=== PATIENT | male | born 1990 | race Asian ===

== ENCOUNTER 2019-06-21 19:51 | Emergency (ER) | payer OTHER ==
[2019-06-21 20:02] VITALS: BP 155/93
--- NOTE | 2019-06-21 20:08 | UC ---
Complaint Male HPI - HPI Summary HPI Summary: Pleasant 28 yo gentleman c/o progressively worse waxing and waning L testicle pain over the past week. Today finally was so painful that he came to get checked. Notes one day had R testicle pain, but resolved completely. No dysuria, hematuria, frequency, urgency. No penile d/c, sores, current lymphadenopathy, rash. No fever / chills. - History of Current Complaint Chief Complaint: UCGU Stated Complaint: PERSONAL ISSUE Time Seen by Provider: 06/21/19 20:07 Hx Obtained From: Patient Pain Intensity: 6 - Allergies/Home Medications Allergies/Adverse Reactions: Allergies Allergy/AdvReac Type Severity Reaction Status Date / Time No Known Allergies Allergy Verified 06/21/19 20:02 Home Medications: Home Medications RX: Ibuprofen 800 mg PO DAILY WITH MEAL 06/21/19 [History Confirmed 06/21/19] PMH/Surg Hx/FS Hx/Imm Hx Previously Healthy: Yes - Surgical History Surgical History: None - Family History Known Family History: Positive: Unknown - Social History Alcohol Use: Rare Substance Use Type: None Smoking Status (MU): Never Smoked Tobacco Review of Systems All Other Systems Reviewed And Are Negative: Yes Constitutional: Positive: Negative Skin: Positive: Negative Eyes: Positive: Negative ENT: Positive: Negative Respiratory: Positive: Negative Cardiovascular: Positive: Negative Gastrointestinal: Positive: Negative Genitourinary: Positive: Other - see hpi Motor: Positive: Negative Neurovascular: Positive: Negative Musculoskeletal: Positive: Negative Neurological: Positive: Negative Psychological: Positive: Negative Is Patient Immunocompromised?: No Physical Exam Triage Information Reviewed: Yes Appearance: Well-Appearing, Well-Nourished Vital Signs: Initial Vital Signs Temp 97.7 F 06/21/19 19:58 Pulse 91 06/21/19 19:58 Resp 18 06/21/19 19:58 BP 155/93 06/21/19 19:58 Pulse Ox 99 06/21/19 19:58 Vital Signs Reviewed: Yes Eye Exam: Normal - grossly nad ENT Exam: Normal - grossly nad Neck exam: Normal - grossly nad Respiratory Exam: Normal Cardiovascular Exam: Normal Abdominal Exam: Normal Abdomen Description: Positive: Nontender Male Genital Exam: Positive: Normal Genitalia, Epididymal Tenderness, Scrotum Tenderness (L), Testicular Tenderness (L), Other - no redness, mild swelling. Negative: Scrotum Tenderness (R), Testicular Tenderness (R), Urethral Discharge Musculoskeletal Exam: Normal - gait steady Neurological Exam: Normal - grossly nonfocal Psychological Exam: Normal - conversing easily, nad Complaint Male Course/Dx - Course Course Of Treatment: Urine dip reviewed with pt (> sg, o/w nad). Pain is testicle is significant. U/s not available in [facility]. Will go to ED for further eval / tx. He will drive to ED. - Differential Dx/Diagnosis Provider Diagnosis: Testicular pain, left Discharge ED - Sign-Out/Discharge Documenting (check all that apply): Patient Departure All imaging exams completed and their final reports reviewed: No Studies - Discharge Plan Condition: Stable Disposition: HOME Patient Education Materials: Testicle Pain (ED) Referrals: No Primary Care Phys,NOPCP [Primary Care Provider] - Additional Instructions: Please go to the Emergency Department. Stop and call 911 if problems en route. - Billing Disposition and Condition Condition: STABLE Disposition: Home
== END 2019-06-21 20:55 | disposition home or self-care (01) ==
LOC: UCEAST 19:51
DX: N50.812 Left testicular pain (principal)
CPT/HCPCS: 81003; 99202; G0463

== ENCOUNTER 2019-06-21 21:11 | Emergency (ER) | payer OTHER ==
[2019-06-21] MEDS ORDERED: Lidocaine 1% MPF ** 5 ML VIAL IM ONE (23:48)
[2019-06-21] MEDS ORDERED: cefTRIAXone VIAL(*) 250 MG VIAL IM ONE (23:48)
[2019-06-21] MEDS ORDERED: DOXYcycline CAP(*) 100 MG PO ONE (23:49)
--- NOTE | 2019-06-21 23:53 | ED ---
GI/ HPI - HPI Summary HPI Summary: 28-year-old male presents with left testicular pain for the past week. He denies any mass or lesions. No dysuria urgency or frequency. No penile discharge. No flank pain. No fevers. never had this before. No injury. Pain does not move anywhere. Does not radiate into the abdomen. - History of Current Complaint Chief Complaint: EDUrogenitalProblems Time Seen by Provider: 06/21/19 23:38 Stated Complaint: GENITAL PAIN PER PT Pain Intensity: 5 - Allergy/Home Medications Allergies/Adverse Reactions: Allergies Allergy/AdvReac Type Severity Reaction Status Date / Time No Known Allergies Allergy Verified 06/21/19 21:17 PMH/Surg Hx/FS Hx/Imm Hx Endocrine/Hematology History: Denies: Hx Diabetes, Hx Thyroid Disease Cardiovascular History: Denies: Hx Hypertension Respiratory History: Denies: Hx Asthma, Hx Chronic Obstructive Pulmonary Disease (COPD) GI History: Denies: Hx Ulcer Infectious Disease History: No Infectious Disease History: Denies: Hx Hepatitis, Hx Human Immunodeficiency Virus (HIV), Traveled Outside the in Last 30 Days - Family History Known Family History: Positive: Unknown - Social History Alcohol Use: Rare Substance Use Type: Reports: None Smoking Status (MU): Never Smoked Tobacco Review of Systems Negative: Fever Negative: Chest Pain Negative: Shortness Of Breath Positive: other - testicular pain All Other Systems Reviewed And Are Negative: Yes Physical Exam Triage Information Reviewed: Yes Vital Signs On Initial Exam: Initial Vitals Temp Pulse Resp BP Pulse Ox 97.1 F 90 16 153/98 98 06/21/19 21:12 06/21/19 21:12 06/21/19 21:12 06/21/19 21:12 06/21/19 21:12 Vital Signs Reviewed: Yes Appearance: Positive: Well-Appearing Skin: Positive: Warm, Dry Head/Face: Positive: Normal Head/Face Inspection Eyes: Positive: Normal, Conjunctiva Clear ENT: Positive: Pharynx normal Respiratory/Lung Sounds: Positive: Clear to Auscultation, Breath Sounds Present Cardiovascular: Positive: Normal, RRR Abdomen Description: Positive: Nontender, Soft Bowel Sounds: Positive: Present Male Genital Exam: Positive: Epididymal Tenderness - left, Scrotum Tenderness (L ). Negative: Testicular Tenderness (L) Musculoskeletal: Positive: Normal Neurological: Positive: Normal Psychiatric: Positive: Normal Diagnostics - Vital Signs Vital Signs Temp Pulse Resp BP Pulse Ox 06/21/19 23:20 98.2 F 91 16 137/88 96 06/21/19 21:12 97.1 F 90 16 153/98 98 - Laboratory Lab Statement: Any lab studies that have been ordered have been reviewed, and results considered in the medical decision making process. - Ultrasound No standard instances Ultrasound Interpretation Completed By: Radiologist Summary of Ultrasound Findings: IMPRESSION: 1. Abnormal appearing right epididymis with increased flow consistent with epididymitis. 2. Both testicles are of normal size and appearance. Normal blood flow. GIGU Course/Dx - Course Course Of Treatment: 28-year-old male presents with left testicular pain for the past week. He denies any mass or lesions. No dysuria urgency or frequency. No penile discharge. No flank pain. No fevers. never had this before. No injury. Pain does not move anywhere. Does not radiate into the abdomen. On exam tenderness left epididymal area. Ultrasound shows epididymitis. Gave dosed of Rocephin and doxcycline. Told follow up with urology if no improvement. Patient understands agrees to plan. - Diagnoses Differential Diagnoses - Male: Epididymitis, Testicular Torsion, Urinary Tract Infection Provider Diagnoses: Acute epididymitis Discharge ED - Sign-Out/Discharge Documenting (check all that apply): Patient Departure Patient Received Moderate/Deep Sedation with Procedure: No - Discharge Plan Condition: Good Disposition: HOME Prescriptions: DOXYcycline CAP(*) [DOXYcycline 100MG CAP(*)] 100 mg PO BID #19 cap Patient Education Materials: Epididymitis (ED) Referrals: Valentín Cantu MD [Medical Doctor] - Additional Instructions: take doxycyline twice a day for 10 days Take ibuprofen every 6 hours as needed for pain elevate scrotum for pain relief follow up with urology if no improvement Return to ED if develop any new or worsening symptoms - Billing Disposition and Condition Condition: GOOD Disposition: Home
[2019-06-22 00:02] VITALS: BP 128/90
== END 2019-06-22 00:01 | disposition home or self-care (01) ==
LOC: ED 21:11
DX: N45.1 Epididymitis (principal)
CPT/HCPCS: 76870; 96372; 99282; A9270-GY; J0696

== ENCOUNTER 2019-09-19 15:51 | Emergency (ER) | payer OTHER ==
[2019-09-19 16:02] VITALS: BP 130/91
--- NOTE | 2019-09-19 16:05 | UC ---
Skin Complaint HPI - HPI Summary HPI Summary: Patient presents to urgent care for evaluation of the wound on the right side of his neck. Patient states he is always had a small multiple. Patient states over the last 2-3 days, bigger. Patient states yesterday he was using a little bit of white drainage. Mild erythema. No pain. No fevers no chills. Patient denies any trauma. No difficulty swallowing. Patient has not taken any medications to try to treat it. Patient never seen anybody for before. Patient without any fevers or chills. Patient states is not immunocompromised. Patient's indications as entered in the EMR reviewed this visit. - History of Current Complaint Chief Complaint: UCGeneralIllness Time Seen by Provider: 09/19/19 16:04 Stated Complaint: SORE SPOT ON NECK Hx Obtained From: Patient Current Severity: None Pain Intensity: 0 Pain Scale Used: 0-10 Numeric - Allergy/Home Medications Allergies/Adverse Reactions: Allergies Allergy/AdvReac Type Severity Reaction Status Date / Time No Known Allergies Allergy Verified 09/19/19 15:57 PMH/Surg Hx/FS Hx/Imm Hx Previously Healthy: Yes - Surgical History Surgical History: None - Family History Known Family History: Positive: Unknown - Social History Occupation: Employed Full-time Lives: With Family Alcohol Use: Rare Substance Use Type: None Smoking Status (MU): Never Smoked Tobacco Review of Systems All Other Systems Reviewed And Are Negative: Yes Constitutional: Positive: Negative Skin: Positive: Other - right side neck lesion Is Patient Immunocompromised?: No Physical Exam - Summary Physical Exam Summary: Vital Signs Reviewed: Yes A+Ox3, no distress Eyes: Conjunctiva Clear ENT: Hearing grossly normal Neck: Positive: Supple Respiratory: Positive: No respiratory distress, No accessory muscle use Cardiovascular: skin color reflect adequate perfusion Musculoskeletal Exam: SHIELDS x 4 without difficulty Neurological: Positive: Alert, ambulatory without difficulty Psychological: Positive: Normal Response To proivder Skin: Positive: right side neck, mid SCM pt with mobile leonardo sized lesion, non tender, non fluctuance, mild erythema, not indurated with scant white, keratenous substance,no odor culture taken Triage Information Reviewed: Yes Vital Signs: Initial Vital Signs Temp 97.9 F 09/19/19 15:58 Pulse 98 09/19/19 15:58 Resp 18 09/19/19 15:58 BP 130/91 09/19/19 15:58 Pulse Ox 99 09/19/19 15:58 Course/Dx - Course Course Of Treatment: Pt presents to for eval of lesion on right side of neck. Pt states has been present for a few years, became larger this week and some drainage yesterday. no fever, chills. not immunocompromised, non painful VSS Pt with apparent epidermal cyst mild erythema, culture taken of scant drainage will start abx warm soaks motrin/apap strict return precautions surgery referral Pt comfortable and in agreement with plan - Diagnoses Provider Diagnosis: Epidermal cyst of neck Discharge ED - Sign-Out/Discharge Documenting (check all that apply): Patient Departure All imaging exams completed and their final reports reviewed: No Studies - Discharge Plan Condition: Stable Disposition: HOME Prescriptions: Sulfamethox/Trimethoprim DS* [Bactrim DS 800/160 TAB*] 1 tab PO BID #20 tab Patient Education Materials: Epidermal Inclusion Cysts (ED) Referrals: [facility] [place] [facility] REFERRAL [Outside] Tim Paulson MD [Medical Doctor] - No Primary Care Phys,NOPCP [Primary Care Provider] - Additional Instructions: - Apply warm, wet soaks for 10 minutes, 2-3 times a day for 5 days Okay to use warm, wet water or water/epsom salt solution - take antibiotics as prescribed until gone - monitor for increased reddness, red streaking, fever - you should be rechecked if you develop any of these - a sample of the drainage was sent to the laboratory - if you need a different antibiotic, you will receive a call from a care care team coordinator scheduler This may take 2-3 days - Contact the surgery office to schedule a follow-up appointment for a recheck of your wound and to discuss possible removal of the cyst Contact the surgery office, return here, or go to the emergency department with any questions or concerns - Billing Disposition and Condition Condition: STABLE Disposition: Home
== END 2019-09-19 16:32 | disposition home or self-care (01) ==
LOC: UCEAST 15:51
DX: L72.8 Other follicular cysts of the skin and subcutaneous tissue (principal)
CPT/HCPCS: 87070; 87077; 87185; 87186; 87205; 87640; 87641; 99211; G0463